=== PATIENT | female | born 1990 | race Caucasian/White ===

== ENCOUNTER 2021-05-15 08:17 | Emergency (ER) | payer SELFPAY ==
[~2021-05-15] VITALS: Ht 162 cm; Wt 120.0 kg
[2021-05-15 08:39] VITALS: BP 122/90
--- NOTE | 2021-05-15 08:52 | ED Integumentary General ---
General Chief Complaint: Skin/Wound Problems Stated Complaint: ABCESS ON GROIN Nursing Triage Note: ARRIVED VIA AMB TO ROOM 05. COMPLAINS OF A GROIN ABSCESS THAT SHE HAS HAD OFF AND ON FOR 3-4 YEARS. STATES SHE WAS PUT ON DOXY YESTERDAY BUT IT IS WORSE TODAY. Source: patient Exam Limitations: no limitations History of Present Illness Date Seen by Provider: May 15, 2021 Time Seen by Provider: 08:41 Initial Comments Patient is a 30-year-old female who presents to the emergency department with a chief complaint of a groin abscess. Patient states that it has been present for about a week, getting worse. She went to [facility] urgent care yesterday and was placed on doxycycline as she is allergic to clindamycin and sulfa. She tells me that the provider there evaluated her and tried to squeeze on the area to cause it to drain but was unsuccessful. Patient states she was also given an antibiotic, mupirocin ointment that she has been applying to the area. She is a diabetic, does not routinely check her sugars. She denies fevers or chills, nausea or vomiting. Movement and her clothing make the area more painful. Nothing really makes it any better. She has been taking Tylenol and ibuprofen. No problems with bowel or bladder. All other review of systems reviewed and negative except as stated. Timing/Duration: week, getting worse Severity: moderate Location: genitalia Possible Cause: other (hair follicle) Associated Symptoms: other (pain) Allergies and Home Medications Allergies Coded Allergies: Sulfa (Sulfonamide Antibiotics) (Verified Allergy, Severe, HIVES, 05/15/21) clindamycin (Verified Allergy, Severe, HIVES, 05/15/21) Patient Home Medication List Home Medication List Reviewed: Yes Hydrocodone/Acetaminophen (Hydrocodone-Acetamin 5-325 mg) 1 Each Tablet, 1 TAB PO Q6H PRN for PAIN-MODERATE (5-7) Prescribed by: JARETT DAVID on 05/15/21 0971 Review of Systems Review of Systems Constitutional: see HPI EENTM: no symptoms reported Respiratory: no symptoms reported Cardiovascular: no symptoms reported Gastrointestinal: no symptoms reported Genitourinary: no symptoms reported : No Musculoskeletal: no symptoms reported Skin: other (abscess on skin of groin) All Other Systems Reviewed Negative Unless Noted: Yes Past Rjebqgm-Gfbafa-Gilpmd Hx Patient Social History Use of E-Cig and/or Vaping dev: Yes Substance use?: No Alcohol Use?: No Physical Exam Vital Signs Vital Signs - First Documented 05/15/21 08:39 Temp 35.5 Pulse 116 Resp 16 B/P (MAP) 122/90 (101) Pulse Ox 97 O2 Delivery Room Air Capillary Refill : Less Than 3 Seconds General Appearance: WD/WN, no apparent distress HEENT: PERRL/EOMI Cardiovascular: regular rate, rhythm Respiratory: lungs clear, normal breath sounds, no respiratory distress, no accessory muscle use Gastrointestinal: normal bowel sounds, non tender, soft Extremities: normal range of motion, normal inspection Neurologic/Psychiatric: alert, normal mood/affect, oriented x 3 Skin: normal color, warm/dry Skin Problem Location: torso (Mons pubis) Skin Problem Character: abscess (2.5cm diameter, with mild erythema surrounding it. very tender to palpation; fluctuant center) Procedures/Interventions I&D : Site: mons pubis Blade Size: 11 I & D Procedure: betadine prep, sterile dressing applied, Wound Packing (1/4in pain gauze) Progress after local anethesia with 1.5cc 1% lidocaine, small incision made over the abscess, moderate amount of purulent drainage, irrigated with 100cc NS. packing placed. Progress/Results/Core Measures Results/Orders Lab Results Laboratory Tests Test 05/15/21 09:45 Range/Units Glucometer 286 H 70-110 MG/DL My Orders Orders - JARETT DAVID MD Ibuprofen Tablet (Motrin Tablet) (05/15/21 09:00) Accucheck Stat ONCE (05/15/21 08:50) Wound Culture (05/15/21 08:50) Lidocaine 1% Inj 20 Ml (Xylocaine 1% Inj (05/15/21 09:00) Medications Given in ED Vital Signs/I&O 05/15/21 08:39 Temp 35.5 Pulse 116 Resp 16 B/P (MAP) 122/90 (101) Pulse Ox 97 O2 Delivery Room Air Blood Pressure Mean: 101 Progress Progress Note : Time: 09:44 Progress Note Patient counseled to continue her antibiotics, I will send a couple of pain pills for a day or 2 over to her [facility] pharmacy. Patient is instructed to remove the packing in 2 days. She is encouraged to bathe often. She is encouraged to keep a close eye on her sugars. She is not super compliant with her medications or monitoring her sugar and I have strongly encouraged her to do so. Return precautions given. Patient verbalized understanding all questions are sought and answered. Patient is stable for discharge. Departure Impression Primary Impression: Abscess Additional Impression: Hyperglycemia due to diabetes mellitus Disposition: HOME, SELF-CARE Condition: Stable Departure-Patient Inst. Decision time for Depature: 09:45 Referrals: [facility] (PCP/Family) Primary Care Physician Patient Instructions: Abscess Incision and Drainage Add. Discharge Instructions: Keep the wound clean dry and covered while you are up and around. You can pull the packing on Friday evening. Please continue to take your antibiotics until they are gone. Follow-up with [facility] as needed/directed. I have sent a prescription for some pain pills to your [facility] pharmacy. Take these only as needed for severe pain. Otherwise take [id number]-[id number] ibuprofen 3 tablets which is 600 mg every 6-8 hours with food as needed. Return to the emergency room if you develop any worsening redness, swelling, fevers or any other emergent concerning symptoms Scripts Hydrocodone/Acetaminophen (Hydrocodone-Acetamin 5-325 mg) 1 Each Tablet 1 TAB PO Q6H PRN for PAIN-MODERATE (5-7), #10 TAB Prov: JARETT DAVID MD 05/15/21 JARETT DAVID MD May 15, 2021 08:52
[2021-05-15] MEDS ORDERED: IBUPROFEN 600 MG (MOTRIN) TAB PO ONE (09:00)
[2021-05-15] MEDS ORDERED: LIDOCAINE 1% INJ 20 ML 20 ML VIAL INJ ONE (09:00)
[2021-05-15] MEDS ORDERED: ACHD5005 PO (09:46)
== END 2021-05-15 09:49 | disposition home or self-care (01) ==
LOC: ER 08:22
DX: L02.214 Cutaneous abscess of groin (principal); E11.65 Type 2 diabetes mellitus with hyperglycemia
CPT/HCPCS: 10061; 82947; 87070; 87077; 87205

== ENCOUNTER 2021-06-12 23:00 | Emergency (ER) | payer SELFPAY ==
[~2021-06-12] VITALS: Ht 162.5 cm; Wt 110.0 kg
[~2021-06-12 23:00] MED LIST: ACHD5005 PO
[2021-06-12 23:24] LABS: BASOPHILS # (AUTO) 0.2 10^3/uL (0.0-0.1); BASOPHILS % (AUTO) 1 % (0-10); EOSINOPHILS # (AUTO) 0.3 10^3/uL (0.0-0.3); EOSINOPHILS % (AUTO) 3 % (0-10); HEMATOCRIT 45 % (35-52); HEMOGLOBIN 14.8 g/dL (11.5-16.0); LYMPHOCYTES # (AUTO) 3.7 10^3/uL (1.0-4.0); LYMPHOCYTES % (AUTO) 30 % (12-44); MEAN CORPUSCULAR HEMOGLOBIN 26 pg (25-34); MEAN CORPUSCULAR HGB CONC 33 g/dL (32-36); MEAN CORPUSCULAR VOLUME 80 fL (80-99); MEAN PLATELET VOLUME 11.2 fL (9.0-12.2); MONOCYTES # (AUTO) 0.7 10^3/uL (0.0-1.0); MONOCYTES % (AUTO) 5 % (0-12); NEUTROPHILS # (AUTO) 7.3 10^3/uL (1.8-7.8); NEUTROPHILS % (AUTO) 60 % (42-75); PLATELET COUNT 314 10^3/uL (130-400); WHITE BLOOD COUNT 12.2 10^3/uL (4.3-11.0)
--- NOTE | 2021-06-12 23:24 | ED GU-Female ---
General Chief Complaint: - Reproductive Stated Complaint: VAG BLEEDING Source: patient History of Present Illness Date Seen by Provider: Jun 12, 2021 Time Seen by Provider: 23:10 Initial Comments PT ARRIVES VIA POV WITH S.O. PT STATES SHE STARTED HER PERIOD AT 1900 TONIGHT AND HAS BEEN MUCH HEAVIER THAN NORMAL STATES SHE HAS GONE THROUGH 5-6 ULTRA TAMPONS SINCE 1900--"EVERY 5-10 MINUTES". PT HAS ONLY PUT ON ONE PAD, WHICH SHE CURRENTLY HAS IN PLACE AT THIS TIME. PT HAS HAD IRREGULAR PERIODS ALL OF LIFE, AND LAST PERIOD WAS 04/29/21. PT WAS ON INFERTILITY TREATMENT WITH CLOMID IN THE LAST YEAR, BUT NONE FOR AT LEAST 6 MONTHS. PT IS NOT ON ANY CONTROL/HORMONE THERAPY OF ANY KIND AT THIS TIME. PT HAS HAD SLIGHT CRAMPING NO NAUSEA/VOMITING NO URINARY SYMPTOMS NO FEVER NO DIZZINESS OR SYNCOPE HAS NOT DONE HOME TEST RECENTLY. [facility] Allergies and Home Medications Allergies Coded Allergies: Sulfa (Sulfonamide Antibiotics) (Verified Allergy, Severe, HIVES, 05/15/21) clindamycin (Verified Allergy, Severe, HIVES, 05/15/21) Patient Home Medication List Home Medication List Reviewed: Yes Hydrocodone/Acetaminophen (Hydrocodone-Acetamin 5-325 mg) 1 Each Tablet, 1 TAB PO Q6H PRN for PAIN-MODERATE (5-7) Prescribed by: JARETT DAVID on 05/15/21 0947 Ondansetron (Ondansetron Odt) 4 Mg Tab.rapdis, 4 MG PO Q4H Prescribed by: HALEY HUSAIN on 06/12/21 235 [[facility] ] , 4 TAB PO DAILY Prescribed by: HALEY HUSAIN on 06/12/21 235 Review of Systems Review of Systems Constitutional: no symptoms reported Respiratory: no symptoms reported Cardiovascular: no symptoms reported Gastrointestinal: see HPI Genitourinary: see HPI LMP: Jun 12, 2021 Musculoskeletal: no symptoms reported Skin: no symptoms reported Psychiatric/Neurological: No Symptoms Reported Endocrine: No Symptoms Reported Hematologic/Lymphatic: See HPI Past Nuddlmq-Ynfjev-Rwixgz Hx Patient Social History Tobacco Use?: No Use of E-Cig and/or Vaping dev: Yes E-Cig or Vaping type used: Nicotine Use of E-Cig and/or Vaping Ibrahima: Current Everyday User Substance use?: No Alcohol Use?: No Pt feels they are or have been: No Immunizations Up To Date Influenza Vaccine Up-to-Date: No; Not Current Past Medical History Surgeries: No Respiratory: No Cardiac: No Neurological: No Reproductive Disorders: Yes (INFERTILITY) Female Reproductive Disorders: Menstrual Problems Genitourinary: No Gastrointestinal: No Musculoskeletal: No Endocrine: Yes (OBESITY) Diabetes, Insulin dep, Hypothyroidsim HEENT: No Cancer: No Psychosocial: No Integumentary: No Blood Disorders: No Physical Exam Vital Signs Vital Signs - First Documented 06/12/21 23:20 Temp 36.9 Pulse 102 Resp 20 B/P (MAP) 140/101 (114) Pulse Ox 97 O2 Delivery Room Air Capillary Refill : Height, Weight, BMI Height: '" Weight: lbs. oz. kg; 45.00 BMI Method: General Appearance: WD/WN, no apparent distress, obese, other ([place]-STYLE) Cardiovascular: regular rate, rhythm, no murmur Respiratory: normal breath sounds Gastrointestinal: soft Pelvic: No lesions, No tender w/ cervical motion; vaginal bleeding, other (LARGE CLOT ADHERED TO TAMPON, WITH MODERAT AMOUNT OF BLOOD IN CANAL, WITH CONTINOUS MILD BLEEDING FROM OS. PT WITH MAXI PAD ON THAT IS ALMOST SATURATED--THIS IS THE ONLY PAD SHE HAS HAD ON SINCE PERIOD STARTED AT 1900 TONIGHT. ) Extremities: normal inspection Skin: normal color, warm/dry Progress/Results/Core Measures Suspected Sepsis SIRS Temperature: Pulse: Respiratory Rate: Laboratory Tests 06/12/21 23:16: White Blood Count 12.2H Blood Pressure / Mean: Laboratory Tests 06/12/21 23:16: Platelet Count 314 Results/Orders Lab Results Laboratory Tests Test 06/12/21 23:16 Range/Units White Blood Count 12.2 H 4.3-11.0 10^3/uL Red Blood Count 5.62 H 3.80-5.11 10^6/uL Hemoglobin 14.8 11.5-16.0 g/dL Hematocrit 45 35-52 % Mean Corpuscular Volume 80 80-99 fL Mean Corpuscular Hemoglobin 26 25-34 pg Mean Corpuscular Hemoglobin Concent 33 32-36 g/dL Red Cell Distribution Width 12.3 10.0-14.5 % Platelet Count 314 130-400 10^3/uL Mean Platelet Volume 11.2 9.0-12.2 fL Immature Granulocyte % (Auto) 1 % Neutrophils (%) (Auto) 60 42-75 % Lymphocytes (%) (Auto) 30 12-44 % Monocytes (%) (Auto) 5 0-12 % Eosinophils (%) (Auto) 3 0-10 % Basophils (%) (Auto) 1 0-10 % Neutrophils # (Auto) 7.3 1.8-7.8 10^3/uL Lymphocytes # (Auto) 3.7 1.0-4.0 10^3/uL Monocytes # (Auto) 0.7 0.0-1.0 10^3/uL Eosinophils # (Auto) 0.3 0.0-0.3 10^3/uL Basophils # (Auto) 0.2 H 0.0-0.1 10^3/uL Immature Granulocyte # (Auto) 0.1 0.0-0.1 10^3/uL Serum Test, Qualitative NEGATIVE NEGATIVE My Orders Orders - HALEY HUSAIN DO Ed Iv/Invasive Line Start (06/12/21 23:11) Cbc With Automated Diff (06/12/21 23:11) Hcg,Qualitative Serum (06/12/21 23:11) Vital Signs/I&O 06/12/21 06/13/21 23:20 00:29 Temp 36.9 Pulse 102 89 Resp 20 18 B/P (MAP) 140/101 (114) 127/99 Pulse Ox 97 97 O2 Delivery Room Air Room Air Capillary Refill : Progress Note : Progress Note UNEVENTFUL ER STAY Departure Impression Primary Impression: Menometrorrhagia Disposition: 01 HOME, SELF-CARE Condition: Stable Departure-Patient Inst. Decision time for Depature: 00:03 Referrals: [facility] (PCP/Family) Primary Care Physician Patient Instructions: Heavy Periods ED, Absent or Irregular Periods Add. Discharge Instructions: LOTS OF FLUIDS TYLENOL AND MOTRIN NEEDED FOR PAIN FOLLOW UP WITH YOUR DR IN 2-3 DAYS IF NO BETTER, OTHERWISE FOLLOW UP SOON POSSIBLE FOR FURTHER EVALUATION/TREATMENT OF IRREGULAR PERIODS All discharge instructions reviewed with patient and/or family. Voiced understanding. Scripts Ondansetron (Ondansetron Odt) 4 Mg Tab.rapdis 4 MG PO Q4H for Nausea/Vomiting, #10 TAB Prov: HALEY HUSAIN DO 06/12/21 [[facility] ] No Conflict Check 4 TAB PO DAILY, #1 PACKET Prov: HALEY HUSAIN DO 06/12/21 Work/School Note: Work Release Form Date Seen in the Emergency Department: Jun 12, 2021 Return to Work: Jun 14, 2021 HALEY HUSAIN DO Jun 12, 2021 23:24
[2021-06-12] MEDS ORDERED: ONDA4TAB11 PO (23:52)
[2021-06-12] MEDS ORDERED: ORTHO NOVUM 1/35 PO (23:52)
[2021-06-13 00:29] VITALS: BP 127/99
== END 2021-06-13 00:28 | disposition home or self-care (01) ==
LOC: EDUNIT# 23:00 → ER 23:02
DX: N92.1 Excessive and frequent menstruation with irregular cycle (principal); E11.9 Type 2 diabetes mellitus without complications; E66.9 Obesity, unspecified; F17.290 Nicotine dependence, other tobacco product, uncomplicated; Z68.42 Body mass index [BMI] 45.0-49.9, adult
CPT/HCPCS: 36415; 84703; 85025